=== PATIENT | male | born 1980 | race Hispanic/Latino ===

== ENCOUNTER 2025-01-22 18:15 | Emergency (ER) | payer BC ==
[~2025-01-22] VITALS: Ht 170.2 cm; Wt 73.5 kg
[~2025-01-22 18:15] MED LIST: NAPROSYN500 MG PO; PANTOPRAZOLE SO40 MG PO
[2025-01-22 18:19] VITALS: PULSE 71; RESP 18; TEMP 98.2
[2025-01-22] MEDS: IBUPROFEN 400 MG TAB PO ONE (18:33)
[2025-01-22 19:00] VITALS: BP 118/72; PULSE 71; RESP 18; TEMP 98.2; O2SAT 97
== END 2025-01-22 19:00 | disposition home or self-care (01) ==
LOC: FSED 18:28
DX: S63.691A Other sprain of left index finger, initial encounter (principal); W18.39XA Other fall on same level, initial encounter; Y93.66 Activity, soccer
CPT/HCPCS: 99283